=== PATIENT | female | born 1990 | race Caucasian/White ===

== ENCOUNTER 2024-12-20 13:50 | Outpatient (CLI) | payer BC, SELFPAY ==
--- NOTE | 2024-12-20 14:00 | CRLHL7_ITS ---
For Patients: As a result of the Century Cures Act, medical imaging exams and procedure reports are released immediately into your electronic medical record. You may view this report before your referring provider. If you have questions, please contact your health care provider. LMP: 09/20/2024. FITZ by LMP: 06/27/2025. GA: 13w, 0d. Single. INDICATION: Dating and viability. Biometry: BPD: 2.4 cm. 14w, 0d, 82 percent. HC: 9.1 cm. 14w, 1d, 80 percent. AC: 7.9 cm. 14w, 2d, 93 percent. FL: 1.0 cm. 13w, 0d, 41 percent. FL/AC ratio: 12.66 percent. HC/AC ratio: 1.15. EFW: 80.84 g. Weight: 0 lbs, 3 oz. age by this US: 13w, 6d. FITZ by this US: 06/11/2025. Percentile by FITZ: 79 percent. IMPRESSION: 1. Single living intrauterine with sonographic gestational age 13 weeks 6 days and sonographic due date 06/21/2025. 2. Incidental corpus luteal cyst right ovary. Unremarkable left ovary. Jose Allen M.D. Diagnostic Radiologist [email or web address] LUAN/[email or web address] / bM/Dictated by: Jose Allen MD @ 12/20/2024 5:20:00 PM (Electronically Signed)
== END 2024-12-20 13:51 | disposition home or self-care (01) ==
LOC: US 13:52
PROVIDERS: Visit Provider Midwife
DX: Z34.91 Encounter for supervision of normal pregnancy, unspecified, first trimester (principal); O34.81 Maternal care for other abnormalities of pelvic organs, first trimester; N83.11 Corpus luteum cyst of right ovary; Z3A.13 13 weeks gestation of pregnancy
CPT/HCPCS: 76801; 83021; 86703; 86706; 86803; 86850; 86900; 86901; 87086; 87340

== ENCOUNTER 2024-12-20 15:35 | Outpatient (CLI) | payer BC, SELFPAY | END 2024-12-20 15:36 | disposition home or self-care (01) | PROVIDERS: Visit Provider Midwife | DX: Z34.82 Encounter for supervision of other normal pregnancy, second trimester (principal) | CPT/HCPCS: 83020; 83021; 85660; 86592; 86703; 86704; 86706; 86762; 86787; 86803; 86850; 86900; 86901; 87086; 87340 ==

== ENCOUNTER 2025-01-19 11:58 | Outpatient (CLI) | payer BC, SELFPAY | END 2025-01-19 11:59 | disposition home or self-care (01) | LOC: NFLDREF 01-26 00:51 | PROVIDERS: Visit Provider Midwife | DX: Z34.82 Encounter for supervision of other normal pregnancy, second trimester (principal) | CPT/HCPCS: 87491; 87591 ==

== ENCOUNTER 2025-02-08 09:21 | Outpatient (CLI) | payer BC, SELFPAY ==
--- NOTE | 2025-02-08 09:15 | CRLHL7_ITS ---
For Patients: As a result of the 21st Century Cures Act, medical imaging exams and procedure reports are released immediately into your electronic medical record. You may view this report before your referring provider. If you have questions, please contact your health care provider. LMP: 09/20/2024. FITZ by LMP: 06/27/2025. GA: 20w, 1d. INDICATION: FAS. CERVIX: Visualized. Measurement: 3.4 cm TA. POSITIONING: Vertex. AMNIOTIC FLUID: 4.4 cm. PLACENTA: Technique: Transabdominal. PLACENTA POSITION: Posterior. Placenta tip to internal os: 8.1 cm. Placental insertion marginal 1.3 cm. DOPPLER: 3-vessel cord. Biometry: BPD: 4.9 cm. 20w, 6d, 77.8 percent. HC: 18.1 cm. 20w, 4d, 59.1 percent. AC: 16.3 cm. 21w, 3d, 82.2 percent. FL: 3.3 cm. 20w, 1d, 44.5 percent. FL/AC ratio: 20.0 percent. HC/AC ratio: 1.1. heart rate: 141 bpm. EFW: 379.5 g. Weight: 0 lbs, 13 oz. age by this US: 20w, 6d. FITZ by this US: 06/22/2025. Percentile by FITZ: 81.9 percent. SURVEY: Observed Structures Cerebellum: Yes. 2.1 cm; 20w 6d. Cisterna Magna: Yes. 6.8 mm. Nuchal Fold: Yes. 4.7 mm. Lateral Ventricle: Yes. 6.7 mm. CSP: Yes. Midline Falx: Yes. Choroid Plexus: Yes. Spine: Yes. Stomach: Yes. Abd Cord Insertion: Yes. Urinary Bladder: Yes. Kidneys: Yes. Diaphragm: Yes. Nose/lips: No. Orbital view: No. Profile: Yes. Upper Extremities: Yes. Lower Extremities: Yes. Hands: Yes. Feet: Yes. Four-Chamber Heart: Yes. LVOT: Yes. RVOT: Yes. 3VV: Yes. 3VTV: Yes. IMPRESSION: 1. Concordance of clinical and sonographic dating. 2. Marginal placental cord insertion located 1.3 cm from the placental edge. 3. Incomplete visualization of the nose, lips and orbits due to position. Remainder of the anatomic survey normal. Short-term follow-up recommended. Jose Allen M.D. Diagnostic Radiologist [email or web address] bM/Dictated by: Jose Allen MD @ 02/08/2025 9:53:00 PM (Electronically Signed)
== END 2025-02-08 09:22 | disposition home or self-care (01) ==
LOC: US 09:22
PROVIDERS: Visit Provider Midwife
DX: Z34.92 Encounter for supervision of normal pregnancy, unspecified, second trimester (principal); Z3A.20 20 weeks gestation of pregnancy
CPT/HCPCS: 76805

== ENCOUNTER 2025-04-05 10:10 | Outpatient (CLI) | payer BC, SELFPAY | END 2025-04-05 10:11 | disposition home or self-care (01) | LOC: NFLDREF 04-07 15:03 | PROVIDERS: Visit Provider Advanced Practice Midwife | DX: O99.013 Anemia complicating pregnancy, third trimester (principal); Z3A.28 28 weeks gestation of pregnancy | CPT/HCPCS: 86592 ==

== ENCOUNTER 2025-05-18 08:56 | Outpatient (CLI) | payer BC, SELFPAY | END 2025-05-18 08:57 | disposition home or self-care (01) | LOC: NFLDREF 05-26 01:56 | PROVIDERS: Visit Provider Midwife | DX: Z34.93 Encounter for supervision of normal pregnancy, unspecified, third trimester (principal); Z34.80 Encounter for supervision of other normal pregnancy, unspecified trimester | CPT/HCPCS: 82728 ==

== ENCOUNTER 2025-06-01 09:44 | Outpatient (CLI) | payer BC, SELFPAY | END 2025-06-01 09:45 | disposition home or self-care (01) | LOC: NFLDREF 06-03 16:41 | PROVIDERS: Visit Provider Advanced Practice Midwife | DX: Z34.93 Encounter for supervision of normal pregnancy, unspecified, third trimester (principal) | CPT/HCPCS: 87081; 87653 ==

== ENCOUNTER 2025-06-28 17:49 | Outpatient (CLI) | payer BC, SELFPAY ==
[2025-06-28 18:21] VITALS: RESP 16; TEMP 36.8
[2025-06-28 18:22] VITALS: BP 109/76; PULSE 94; PULSE 98; O2SAT 97
--- NOTE | 2025-06-28 21:38 | PC.OBNST ---
NST Note NST Note Start: 06/28/25 18:06 Freq: ONCE Status: Discharge Protocol: Document 06/28/25 21:28 CJM (Rec: 06/28/25 21:37 CJM No Response) NST Note 4 Para (# of births) 2 EDC 06/27/25 Gestational Age In 40 Weeks & 1 Days Weeks & Days Patient Presented Contractions/cramping with Complaint(s) of Reactive Yes Appropriate for Yes Gestational Age RN Ilda Santoyo RN Date 06/28/25 Reactive Yes Appropriate for Yes Gestational Age RN Rahel Coker RN Date 06/28/25 OB NST charge Yes Complete NST Note Yes via Write Note The provider's electronic signature indicates the NST is reactive/appropriate for gestational age. *Note to provider: If an addendum is required, open the patient's chart and click on the note under the Nurse/Allied Health tab.
== END 2025-06-28 21:30 | disposition home or self-care (01) ==
LOC: OB OUT 17:50 → OB 17:50
PROVIDERS: Visit Provider Advanced Practice Midwife
DX: O47.1 False labor at or after 37 completed weeks of gestation (principal); Z3A.40 40 weeks gestation of pregnancy
CPT/HCPCS: 59025; G0463

== ENCOUNTER 2025-06-29 04:49 | Inpatient (IN) | payer BC, SELFPAY ==
[2025-06-29] VITALS (19 sets, daily range): BP systolic 96–145; BP diastolic 59–73; PULSE 86–108; RESP 16–22; TEMP 35.8–37.1; O2SAT 95–100; BMI 31.9
--- NOTE | 2025-06-29 04:53 | W.PM.LDBA ---
Subjective History of Present Illness Date Seen: 06/29/25 Narrative: Gladys is a 34 yo is being admitted to Labor and Delivery for spontaneous onset of labor. She was in earlier last evening for early labor and elected to go home. She was able to rest some at home and is now feeling like they have increased in intensity and frequency. She denies any leaking of fluid or bleeding. She is supported in labor by her , Kurtis. Specific Issues/Plans G4 P 2011 Parner: Kurtis, Daughters: Corbin Lehman. It is another girl! H&P completed by Radha CARDENAS on 06/08/25? # Hx PP anxiety? # Marginal cord insertion, 1.3 cm from placenta edge No testing indicated when >1cm # suboptimal views of nose/lips and orbital view, patient declines follow-up ultrasound Offered at 24 weeks again, declines ?#Anemia Hgb 9.5 at 28 wks, recommended supplement and increased iron rich foods Hgb 9.3 at 36 weeks, declines IV; was not consistent in oral and will start and increase foods CBC on admission Imaging:? 1st trimester: 12/20/2024 13 0/7 weeks by LMP, 13 6/7 weeks by u/s? FITZ: 06/27/2025 by LMP, c/w 1st trimester u/s, SLIUP? Anatomy scan: Posterior placenta, no previa. Cord 1.3 cm from placental edge. Normal anatomy, suboptimal views nose/lips an orbital view. EFW 81.9%?? Others: []? COVID: Flu: N/A TDAP:Declines 04/20/25 PAP: 02/2021- [place], no HPV done. Due 2023:defer til PP OB - Problem Based A/P Additional Plan (1) Pain during labor: Status: Acute (2) Anemia affecting : Status: Acute (3) 40 weeks gestation of : Status: Acute Plan ASSESSMENT:? 34 yo at 40.2 weeks gestation? complicated by: Hx PP anxiety, Marginal cord insertion, 1.3 cm from placenta edge, suboptimal views of nose/lips and orbital view, patient declines follow-up ultrasound, Anemia Labor type: Induced, Active labor? Category 1 FHR pattern.?? Labor complicated by: none? GBS negative? ? PLAN:? 1. Routine intrapartum cares as ordered. Continue with expectant management? 2. Monitoring per policy, intermittent? 3. Planning unmedicated . Desires water . Consent signed. Hep C negative. Candidate for analgesia of choice, if desired.?? 4. Patient encouraged to reposition and ambulate to promote physiologic labor and .? 5. Anemia, plan CBC on admission. 6. Anticipate ? Delivery/Labor/Induction Plan Plan: expectant management OB Exam Physical Exam Narrative: Objective: Constitutional: Alert and oriented x3, mild distress, coping well Vital signs stable, see nurse documentation Abdomen: gravid, contractions palpate moderate with contractions and soft between Cervix: 5 cm/80%/-0 station/vertex NST: 130 bpm/moderate variability/15x15 accelerations/no decelerations/contractions every 1-3 minutes Detailed Labor and Delivery Exam Patient Gravid: yes
[2025-06-29 05:37] LABS: Hematocrit* 36.3 % (33.0-51.0); Hemoglobin* 11.9 gm/dL (12.0-16.0); Immature Granulocytes Pct Auto 0.5 %; Mean Corpuscular HGB Conc 33 gm/dL (32-36); Mean Corpuscular Hemoglobin 28 pg (26-34); Mean Corpuscular Volume 86 fL (80-100); RDW Coefficient of Variation % 17.5 % (11.5-15.5); Red Blood Count* 4.24 m/uL (4.00-5.20); White Blood Count* 16.40 K/uL (4.50-11.00)
[2025-06-29 05:53] LABS: Immature Granulocytes Abs Auto 0.10 K/uL (0.00-0.30); Lymphocytes Absolute Auto 4.00 K/uL (0.90-2.90); Slide Review Reflex No
--- NOTE | 2025-06-29 07:33 | W.PM.OBVAGDE ---
OB Procedure Vag Delivery Mother Details Mother Details: The patient is a 34 year-old, 4, now Para 3, admitted on 06/29/25 at 40.2 weeks gestation for spontaneous onset of labor. : 4 Para: 3 Weeks Gestation: 40.2 Admission Date: 06/29/25 Additional Details Amniotic Membrane Status: SROM Amniotic Membrane Rupture Date: 06/29/25 Amniotic Membrane Rupture Time: 06:50 Amniotic Membrane Fluid Description: Clear Analgesia/Anesthesia Type: None Waterbirth: Yes Pitcoin: No Intrapartal Events: None Labor Onset: 04:47 Complete: 06:50 Pushin:50 Heart: heart tones during second stage were reassuring via intermittent monitoring prior, not auscultated during 2nd stage due to delivery with one contraction. Delivery Details Delivery Date: 06/29/25 Delivery Time: 06:51 Route of delivery: Infant Gender: Female Infant Viability: Alive; Heart Rate Present Position at Delivery: OA Delivery Details: Patient was admitted for spontaneous onset of labor and progressed precipitously. SROM with pushing at 0650 with clear fluid. Patient was assumed complete with pushing at 0650. of a viable female at 0651 kneeling over the edge in the tub. Vertex delivered OA. No nuchal cord or shoulder. Body delivered easily and without incident. Infant passed to mothers abdomen with a vigorous cry. Cord was clamped and cut at > 5 minutes. APGARS were 7 at one minute and 9 at five minutes respectively. Mouth was bulb suctioned. Intact placenta with a 3 vessel cord delivered spontaneously at 715. Fundus firm. Intact perineum identified and repaired in typical fashion. QBL 150 + EBL 100 for total 250 cc. Mother and baby stable; mother plans to breastfeed. weight 9lb 6oz. 1 Minute Interval Total Score: 7 5 Minute Interval Total Score: 9 Additional Details Shoulder Dystocia: No Placenta Delivery Time: 07:15 Placental Delivery Description: Spontaneous Delivery repair: Vicryl Procedure Done: Global Blood Loss: 250 Laceration: None Blood Loss Measurement Type: QBL (+EBL in tub) Bakri Used: No Sponge/Need Count Correct: Yes Cord Vessel Description: 3 Vessels Event Summary Status: Mother and were stable after delivery. Disposition: floor
[2025-06-30 00:30] VITALS: BP 97/58; PULSE 89; RESP 16; TEMP 36.9; O2SAT 95
[2025-06-30 05:00] VITALS: BP 99/65; PULSE 90; RESP 16; TEMP 36.4; O2SAT 98
--- NOTE | 2025-06-30 08:18 | P.DS_ITS ---
DS: Providers Provider Time Seen by Provider: 07:30 Date Seen: 06/30/25 Date of admission: 06/29/25 04:49 Primary care physician: Not a Local Provider Admitting Clinician: Brigida Corrales CNM Attending Physician on discharge: Jodi Valente CNM Date of Discharge: 06/30/25 DS: Diagnosis Discharge Diagnosis (1) normal course: Status: Acute (2) Lactating mother: Status: Acute Exam Narrative: Exam Narrative: Constitutional: no apparent distress Respiratory: no labored breathing, lung sounds clear to auscultation Cardiovascular: regular heart rate and rhythm Abdomen: soft, uterine fundus firm 1cm and to the right. Bladder is full Mood: calm, cooperative, bonding with baby Const: Vital Signs, click to edit/add: Vital Signs - 24 hr 06/29/25 08:29 06/29/25 08:30 06/29/25 08:44 Temperature Pulse Rate 88 Pulse Rate [Pulse Oximeter] Respiratory Rate 18 18 Blood Pressure 106/62 Blood Pressure [Le ft Arm] Pulse Oximetry Oxygen Delivery Me thod 06/29/25 08:45 06/29/25 09:00 06/29/25 09:00 Temperature Pulse Rate 96 92 Pulse Rate [Pulse Oximeter] Respiratory Rate 18 Blood Pressure 105/65 96/59 L Blood Pressure [Le ft Arm] Pulse Oximetry Oxygen Delivery Me thod 06/29/25 09:15 06/29/25 09:15 06/29/25 13:47 Temperature 98.3 F 98.4 F Pulse Rate 108 H Pulse Rate [Pulse Oximeter] 87 Respiratory Rate 18 18 Blood Pressure 98/68 Blood Pressure [Le ft Arm] 101/65 Pulse Oximetry 95 Oxygen Delivery Me thod Room Air 06/29/25 18:00 06/29/25 22:01 06/30/25 00:30 Temperature 98.7 F 98.5 F Pulse Rate Pulse Rate [Pulse Oximeter] 106 H 87 89 Respiratory Rate 18 18 16 Blood Pressure Blood Pressure [Le ft Arm] 105/73 96/61 97/58 L Pulse Oximetry 100 97 95 Oxygen Delivery Me thod Room Air Room Air Room Air 06/30/25 05:00 Temperature 97.6 F Pulse Rate Pulse Rate [Pulse Oximeter] 90 Respiratory Rate 16 Blood Pressure Blood Pressure [Le ft Arm] 99/65 Pulse Oximetry 98 Oxygen Delivery Me thod Room Air Documenting provider has reviewed patient's vital signs: yes OB - DS: Summary Hospital Course Hospital Course: The patient is a 34 year old G 4 P 3 at 40 weeks gestation that was admitted to the Center on 06/29/25 for onset of spontaneous labor. She had an uncomplicated vaginal delivery. She delivered a viable female infant. She is breast feeding and baby has been cluster feeding last night and is doing well. Voiding without problem. Passing gas and has not yet had a bowel movement. Has stool softener at home which she plans to continue. No large vaginal blood clots or heavy bleeding. Note she feels weak and noodley. Reassurance of normal and should improve with time. Offered belly support band. Plan to use condoms for contraception. Desires to go home today. KAYLA Arias I, Jodi Valente, MIRROR PAINTER, CNM, was present for visit and have reviewed and agree with documentation by the Certified Nurse Midwifery Student.? Peripartum Data Infant delivery method: Vaginal Laceration description: None Episiotomy description: None complications: none Gender: Female Infant Discharge Plan: Home Status at Discharge Functional status at discharge: independent ambulation Overall status at discharge: patient is progressing back to baseline Time Spent with Patient Time attestation: Total time spent providing and/or coordinating discharge services: Time spent: Less than 30 minutes Discharge Plan Discharge Disposition: Home, Self-Care Date of Admission: 06/29/25 04:49 Attending Provider on Discharge: Jodi Valente Primary Care Provider: Provider,Not a Local Condition: Stable Anticipated Discharge Date/Time: 06/30/25 10:31 Discharge Medications: Continued docusate sodium [Colace] 100 mg capsule 100 mg PO QDAY One A Day Women's DHA 28 mg iron- 800 mcg combo pack 1 pkg PO DAILY magnesium citrate 100 mg capsule 100 mg PO QDAY ferrous fumarate-vitamin C 132-250 mg tablet 1 tab PO DAILY Discharge Orders: Discharge Order (Routine); Ordered 06/30/25 Ordered By: Jodi Valente Patient Education: OB Vaginal/Breast Feeding Additional Instructions: Discharge instructions were reviewed with the patient including signs and symptoms of infection and home going medications Nothing vaginally for 6 weeks: no tampons or intercourse Do not drive while taking narcotic pain medication(s) Off Work or School for 8 weeks Symptoms to report to doctor: * Bleeding that saturates more than one pad per hour * Passing clots larger than the size of a golf ball * Pain not relieved by prescribed medication * Fever above 100.4 degrees Fahrenheit * A foul vaginal odor * Difficulty in emotions, mood, and functions * Thoughts of hurting yourself and/or * Painful, reddened area in your breast * Any drainage, redness, or tenderness in your IV/epidural site * Severe headache that doesn't improve after taking medications * Changes in vision, including temporary loss of vision, blurred vision, and/or light sensitivity * Upper abdominal pain (usually under ribs on the right side) * Decrease in urination or painful, frequent urinating * Chest pain * Shortness of breath * Tenderness or pain with redness and/swelling in the calf(s) of your leg 2-week visit: discuss infant feeding concerns, review control options and screen for anxiety/depression. 6-week visit for an annual exam. consultation services are available to all mothers and babies for the first year after delivery.? To make an appointment, please call [phone]. Activity Level: No Restrictions Discharge Diet: Regular Follow Up Appointments: [facility] [Provider Group] Provider,Not a Local [Primary Care Provider, Family Practice] Forms: [employer] Info Instructions
[2025-06-30] MEDS: DOCUSATE SODIUM 100 MG CAPSULE PO (09:39)
== END 2025-06-30 10:56 | disposition home or self-care (01) | DRG 560 ==
LOC: OB OUT 04:50 → OB 18:54
PROVIDERS: Admitting Provider Advanced Practice Midwife; Visit Provider Advanced Practice Midwife
DX: O99.02 Anemia complicating childbirth (principal); D64.9 Anemia, unspecified; Z3A.40 40 weeks gestation of pregnancy; Z37.0 Single live birth
CPT/HCPCS: 36415; 85025; 86592; G0463; A9270

== ENCOUNTER 2025-08-10 11:44 | Outpatient (CLI) | payer BC, SELFPAY ==
[2025-08-12 08:46] LABS: HPV Source Cervical
[2025-08-16 12:30] LABS: Pap Test Digital Imaging Done
== END 2025-08-10 11:45 | disposition home or self-care (01) ==
PROVIDERS: Visit Provider Advanced Practice Midwife
DX: Z12.4 Encounter for screening for malignant neoplasm of cervix (principal)
CPT/HCPCS: 87624; 87625; 88141; 88142; 88175